=== PATIENT | female | born 1935 | race Caucasian/White ===

== ENCOUNTER 2020-05-13 23:24 | Observation (INO) | payer MEDICARE ==
[2020-05-13] MEDS ORDERED: NORCO 5/325 MG PO ONE (23:53)
--- NOTE | 2020-05-14 00:01 | ERPHSYRPT ---
- History of Present Illness Time Seen by Provider: 05/13/20 23:40 Source: patient Exam Limitations: no limitations Physician History: 85 yo [place] with palpitations and sob. she is given oral metoprolol and nitro x2 [employer] for palpitations /chest tightness. she reports that this afternoon was having low grade fever and chills as well. Palpitations are sudden onset , fast rate , regular with no significant aggravating /relieving factors . still have chest tightness but better than before. denies any cough. on presentation HR in 104 . Timing/Duration: today, gradual onset, worse Activities at Onset: rest Severity of Dyspnea-Max: moderate Severity of Dyspnea-Current: moderate Modifying Factors: Improves With: nothing Associated Symptoms: cough, chest pain/discomfort, fever, tightness Allergies/Adverse Reactions: albuterol Allergy (Verified 05/13/20 23:36) Home Medications: Acetaminophen 325 mg [Tylenol 325 mg] 2 tab PO Q4H PRN 05/14/20 [History] Aspirin EC 81 mg [Ecotrin 81 mg] 81 mg PO HS 05/14/20 [History] Clopidogrel Bisulfate 75 mg [PLAVIX 75 MG Tablet] 75 mg PO DAILY 05/14/20 [History] Enoxaparin Sodium 40 mg SQ DAILY 05/14/20 [History] Gabapentin 200 mg PO TID 05/14/20 [History] Glimepiride 1 mg PO BID 05/14/20 [History] Glucagon [Baqsimi] 1 spray IN UD PRN 05/14/20 [History] Hydrocodone Bit/Acetaminophen [Hydrocodon-Acetaminophen 5-325] 1 tab PO Q6H PRN 05/14/20 [History] Insulin Glargine,Hum.rec.anlog [Toujluis Almanza Solostar] 25 units SQ HS 05/14/20 [History] Insulin Lispro 7 units SQ TID 05/14/20 [History] Isosorbide Mononitrate 30 mg [Imdur 30 MG] 30 mg PO DAILY 05/14/20 [History] Levothyroxine Sodium 88 Mcg [Synthroid 88 Mcg] 88 mcg PO DAILY 05/14/20 [History] Lidocaine/Transparent Dressing [Lidocaine 4% Kit] 1 patch TOP DAILY 05/14/20 [History] Lisinopril 10 mg [Zestril 10 MG] 10 mg PO DAILY 05/14/20 [History] Metformin HCl 500 mg [Glucophage 500 MG] 500 mg PO BID 05/14/20 [History] Metoprolol Succinate 50 mg PO DAILY 05/14/20 [History] Nitroglycerin 0.4 mg Tablet [Nitrostat 0.4 MG Tablet] 1 tab SL Q5MIN PRN MR X 3 PRN 05/14/20 [History] PANTOPRAZOLE 40 mg Tablet [Protonix 40MG Tablet] 40 mg PO DAILY 05/14/20 [History] Polyethylene Glycol 3350 [Miralax] 1 packet PO DAILY PRN 05/14/20 [History] - Review of Systems Constitutional: Fever, Chills, Fatigue, Weakness Eyes: No Symptoms Ears, Nose, & Throat: No Symptoms Respiratory: Dyspnea, Wheezing Cardiac: Chest Pain, Palpitations Abdominal/Gastrointestinal: No Symptoms Genitourinary Symptoms: No Symptoms Musculoskeletal: Joint Pain Skin: No Symptoms Neurological: No Symptoms Psychological: No Symptoms Endocrine: No Symptoms Hematologic/Lymphatic: No Symptoms Immunological/Allergic: No Symptoms - Nursing Vital Signs Nursing Vital Signs: Initial Vital Signs Temperature 98.6 F 05/13/20 23:25 Pulse Rate 102 H 05/13/20 23:25 Respiratory Rate 20 05/13/20 23:25 Blood Pressure 120/65 05/13/20 23:25 O2 Sat by Pulse Oximetry 94 L 05/13/20 23:25 Pain Scale Pain Intensity 0 - Physical Exam General Appearance: no apparent distress, alert Eye Exam: PERRL/EOMI, eyes nml inspection Ears, Nose, Throat Exam: hearing grossly normal, normal ENT inspection, pharyngeal erythema Neck Exam: normal inspection, non-tender, supple, full range of motion Respiratory Exam: diminished breath sounds, wheezing, No respiratory distress Cardiovascular/Chest Exam: normal heart sounds, tachycardia Abdominal/Gastrointestinal Exam: soft, normal bowel sounds, No tenderness Extremity Exam: non-tender Neurologic Exam: alert, oriented x 3, cooperative Skin Exam: normal color, warm SpO2 Interpretation: normal O2 Delivery: Room Air - Course Nursing assessment & vital signs reviewed: Yes EKG Interpreted by Me: RATE (102), Sinus Tach, NORMAL AXIS, NORMAL INTERVALS, Non-specific ST Changes Ordered Tests: Medication Summary Discontinued Medications Generic Name Dose Route Start Last Admin Trade Name Freq PRN Reason Stop Dose Admin Acetaminophen 650 mg 05/14/20 09:51 05/16/20 06:55 Tylenol 325 Mg PO 06/13/20 09:50 650 mg Q4H PRN PRN Administration PAIN AND/OR FEVER Hydrocodone Bitart/Acetaminophen 1 tab 05/13/20 23:53 05/14/20 00:38 [place] 5/325 Mg PO 05/13/20 23:54 1 tab STAT ONE Administration Hydrocodone Bitart/Acetaminophen Confirm 05/14/20 00:37 [place] 5/325 Mg Administered 05/14/20 00:38 Dose 1 tab .ROUTE .STK-MED ONE Hydrocodone Bitart/Acetaminophen 1 tab 05/14/20 13:15 [place] 5/325 Mg PO 05/19/20 13:14 Q6H/PRN PRN MODERATE TO SEVERE PAIN Dextrose 25 ml 05/15/20 11:45 05/15/20 11:44 D50w 50 Ml Abboject IV 05/15/20 11:46 25 ml NOW ONE Administration Enoxaparin Sodium 40 mg 05/14/20 14:00 05/16/20 09:14 Enoxaparin Sodium SQ 06/13/20 13:59 40 mg DAILY BRANDEN Administration Famotidine 20 mg 05/14/20 10:00 05/16/20 09:14 Pepcid 20 Mg Vial IV 06/13/20 09:59 20 mg Q12HT BRANDEN Administration Gabapentin 200 mg 05/14/20 15:00 05/16/20 09:14 Neurontin 100 Mg PO 06/13/20 14:59 200 mg TID BRANDEN Administration Glucagon 1 mg 05/14/20 13:37 Glucagen 1 Mg IM 06/13/20 13:36 UD PRN HYPOGLYCEMIA Lactated Ringer's 1,000 mls @ 80 mls/hr 05/14/20 15:30 05/15/20 06:27 Lactated Ringers IV 06/13/20 15:29 80 mls/hr .[id number] BRANDEN Administration Piperacillin Sod/Tazobactam 100 mls @ 200 mls/hr 05/14/20 15:00 05/16/20 09:13 Sod 2.25 gm/ Dextrose IV 06/13/20 14:59 200 mls/hr Q6H BRANDEN Administration Insulin Glargine 10 unit 05/14/20 22:00 05/15/20 21:18 Lantus Insulin SQ 06/13/20 21:59 10 unit HS BRANDEN Administration Insulin Human Lispro 0 unit 05/14/20 09:51 05/15/20 21:19 Humalog SQ 06/13/20 09:50 3 unit UD PRN Administration HYPERGLYCEMIA Isosorbide Mononitrate 30 mg 05/14/20 14:00 05/16/20 09:15 Imdur 30 Mg PO 06/13/20 13:59 30 mg DAILY BRANDEN Administration Levothyroxine Sodium 88 mcg 05/14/20 14:00 05/16/20 09:15 Synthroid 88 Mcg PO 06/13/20 13:59 88 mcg DAILY BRANDEN Administration Lidocaine 1 patch 05/14/20 14:00 05/16/20 09:13 Lidoderm Patch 5% TOP 06/13/20 13:59 1 patch DAILY BRANDEN Administration Lisinopril 10 mg 05/14/20 14:00 05/16/20 09:14 Zestril 10 Mg PO 06/13/20 13:59 10 mg DAILY BRANDEN Administration Metoprolol Succinate 50 mg 05/14/20 14:00 05/16/20 09:14 Toprol Xl 50 Mg PO 06/13/20 13:59 50 mg DAILY BRANDEN Administration Morphine Sulfate 2 mg 05/14/20 09:51 Morphine Sulfate 2 Mg Inj IV 05/19/20 09:50 Q4H PRN PRN PAIN Nitroglycerin 0.4 mg 05/14/20 13:15 Nitrostat 0.4 Mg Tablet SL 06/13/20 13:14 Q5MIN PRN MR X 3 PRN CHEST PAIN Non-Formulary Medication 1 each 05/14/20 22:00 05/15/20 21:31 Remove Patch Reminder TOP 06/13/20 21:59 1 each HS BRANDEN Administration Ondansetron HCl 4 mg 05/14/20 06:33 05/14/20 07:45 Zofran 4 Mg/2 Ml Vial IV 05/14/20 06:34 4 mg STAT ONE Administration Ondansetron HCl Confirm 05/14/20 07:29 Zofran 4 Mg/2 Ml Vial Administered 05/14/20 07:30 Dose 4 mg .ROUTE .STK-MED ONE Ondansetron HCl 4 mg 05/14/20 09:51 Zofran 4 Mg/2 Ml Vial IV 06/13/20 09:50 Q6H PRN PRN NAUSEA/VOMITING Pantoprazole Sodium 40 mg 05/14/20 14:00 05/16/20 09:14 Protonix 40mg Tablet PO 06/13/20 13:59 40 mg DAILY BRANDEN Administration Polyethylene Glycol 17 gm 05/14/20 13:15 05/15/20 17:45 Miralax Powder 17gm Packet PO 06/13/20 13:14 17 gm DAILY PRN PRN Administration bowel care Sodium Chloride 10 ml 05/15/20 22:00 05/16/20 06:55 Sodium Chloride 0.9% 10 Ml Flush Syringe IV 06/14/20 21:59 10 ml Q8HT BRANDEN Administration Sodium Chloride 10 ml 05/15/20 16:30 05/15/20 17:45 Sodium Chloride 0.9% 10 Ml Flush Syringe IV 06/14/20 16:29 10 ml PRN PRN Administration Lab/Rad Data: Laboratory Result Diagrams 05/13/20 00:05 05/13/20 00:05 Laboratory Results 05/14/20 05/14/20 05/14/20 Range/Units 07:43 05:00 03:15 WBC (4.0-10.5) K/mm3 RBC (4.1-5.4) M/mm3 Hgb (12.0-16.0) gm/dl Hct (35-47) % MCV (78-100) fl MCH (26-32) pg MCHC (32-36) g/dl RDW (11.5-14.0) % Plt Count (150-450) K/mm3 MPV (7.5-11.0) fl Gran % (36.0-66.0) % Eos # (Auto) (0-0.5) Absolute Lymphs (auto) (1.0-4.6) Absolute Monos (auto) (0.0-1.3) Lymphocytes % (24.0-44.0) % Monocytes % (0.0-12.0) % Eosinophils % (0.00-5.0) % Basophils % (0.0-0.4) % Absolute Granulocytes (1.4-6.9) Basophils # (0-0.4) PT (9.95-12.35) SECONDS INR (0.8-3.0) APTT (25.3-37.0) SECONDS D-Dimer (215-500) ng/mL Sodium (137-145) mmol/L Potassium (3.5-5.1) mmol/L Chloride (98-107) mmol/L Carbon Dioxide (22-30) mmol/L Anion Gap (5-15) MEQ/L BUN (7-17) mg/dL Creatinine (0.52-1.04) mg/dL Estimated GFR ML/MIN Glucose (74-106) mg/dL Hemoglobin A1c 6.55 H (4.5-6.0) % Lactic Acid (0.4-2.0) Calcium (8.4-10.2) mg/dL Magnesium (1.6-2.3) mg/dL Total Bilirubin (0.2-1.3) mg/dL AST (14-36) U/L ALT (0-35) U/L Alkaline Phosphatase (38-126) U/L Troponin I < 0.012 (0.000-0.034) ng/mL NT-Pro-B Natriuret Pep (0-1800) pg/mL Serum Total Protein (6.3-8.2) g/dL Albumin (3.5-5.0) g/dL Urine Color (YELLOW) Urine Appearance (CLEAR) Urine pH (5-6) Ur Specific [place] (1.005-1.025) Urine Protein (Negative) Urine Ketones (NEGATIVE) Urine Blood (0-5) Wojciech/ul Urine Nitrite (NEGATIVE) Urine Bilirubin (NEGATIVE) Urine Urobilinogen (0-1) mg/dL Ur Leukocyte Esterase (NEGATIVE) Urine WBC (Auto) (0-5) /HPF Urine RBC (Auto) (0-2) /HPF U Epithel Cells (Auto) (FEW) /HPF Urine Bacteria (Auto) (NEGATIVE) /HPF Urine Culture Reflexed (NO) Urine Glucose (NEGATIVE) mg/dL Influenza Type A Ag (NEGATIVE) Influenza Type B Ag (NEGATIVE) RSV (PCR) (Negative) SARS-CoV-2 (PCR) NEGATIVE (NEGATIVE) Slides for Path Review 05/14/20 05/14/20 05/14/20 Range/Units 01:30 01:08 00:05 WBC (4.0-10.5) K/mm3 RBC (4.1-5.4) M/mm3 Hgb (12.0-16.0) gm/dl Hct (35-47) % MCV (78-100) fl MCH (26-32) pg MCHC (32-36) g/dl RDW (11.5-14.0) % Plt Count (150-450) K/mm3 MPV (7.5-11.0) fl Gran % (36.0-66.0) % Eos # (Auto) (0-0.5) Absolute Lymphs (auto) (1.0-4.6) Absolute Monos (auto) (0.0-1.3) Lymphocytes % (24.0-44.0) % Monocytes % (0.0-12.0) % Eosinophils % (0.00-5.0) % Basophils % (0.0-0.4) % Absolute Granulocytes (1.4-6.9) Basophils # (0-0.4) PT (9.95-12.35) SECONDS INR (0.8-3.0) APTT (25.3-37.0) SECONDS D-Dimer 1515 H* (215-500) ng/mL Sodium (137-145) mmol/L Potassium (3.5-5.1) mmol/L Chloride (98-107) mmol/L Carbon Dioxide (22-30) mmol/L Anion Gap (5-15) MEQ/L BUN (7-17) mg/dL Creatinine (0.52-1.04) mg/dL Estimated GFR ML/MIN Glucose (74-106) mg/dL Hemoglobin A1c (4.5-6.0) % Lactic Acid 2.0 (0.4-2.0) Calcium (8.4-10.2) mg/dL Magnesium (1.6-2.3) mg/dL Total Bilirubin (0.2-1.3) mg/dL AST (14-36) U/L ALT (0-35) U/L Alkaline Phosphatase (38-126) U/L Troponin I (0.000-0.034) ng/mL NT-Pro-B Natriuret Pep (0-1800) pg/mL Serum Total Protein (6.3-8.2) g/dL Albumin (3.5-5.0) g/dL Urine Color YELLOW (YELLOW) Urine Appearance CLEAR (CLEAR) Urine pH 7.0 (5-6) Ur Specific [place] 1.006 (1.005-1.025) Urine Protein NEGATIVE (Negative) Urine Ketones NEGATIVE (NEGATIVE) Urine Blood NEGATIVE (0-5) Wojciech/ul Urine Nitrite NEGATIVE (NEGATIVE) Urine Bilirubin NEGATIVE (NEGATIVE) Urine Urobilinogen NORMAL (0-1) mg/dL Ur Leukocyte Esterase NEGATIVE (NEGATIVE) Urine WBC (Auto) NONE SEEN (0-5) /HPF Urine RBC (Auto) NONE SEEN (0-2) /HPF U Epithel Cells (Auto) NONE (FEW) /HPF Urine Bacteria (Auto) NONE SEEN (NEGATIVE) /HPF Urine Culture Reflexed NO (NO) Urine Glucose NEGATIVE (NEGATIVE) mg/dL Influenza Type A Ag (NEGATIVE) Influenza Type B Ag (NEGATIVE) RSV (PCR) (Negative) SARS-CoV-2 (PCR) (NEGATIVE) Slides for Path Review 05/13/20 05/13/20 05/13/20 Range/Units 23:52 00:20 00:05 WBC (4.0-10.5) K/mm3 RBC (4.1-5.4) M/mm3 Hgb (12.0-16.0) gm/dl Hct (35-47) % MCV (78-100) fl MCH (26-32) pg MCHC (32-36) g/dl RDW (11.5-14.0) % Plt Count (150-450) K/mm3 MPV (7.5-11.0) fl Gran % (36.0-66.0) % Eos # (Auto) (0-0.5) Absolute Lymphs (auto) (1.0-4.6) Absolute Monos (auto) (0.0-1.3) Lymphocytes % (24.0-44.0) % Monocytes % (0.0-12.0) % Eosinophils % (0.00-5.0) % Basophils % (0.0-0.4) % Absolute Granulocytes (1.4-6.9) Basophils # (0-0.4) PT 12.8 H (9.95-12.35) SECONDS INR 1.13 (0.8-3.0) APTT 28.2 (25.3-37.0) SECONDS D-Dimer (215-500) ng/mL Sodium (137-145) mmol/L Potassium (3.5-5.1) mmol/L Chloride (98-107) mmol/L Carbon Dioxide (22-30) mmol/L Anion Gap (5-15) MEQ/L BUN (7-17) mg/dL Creatinine (0.52-1.04) mg/dL Estimated GFR ML/MIN Glucose (74-106) mg/dL Hemoglobin A1c (4.5-6.0) % Lactic Acid (0.4-2.0) Calcium (8.4-10.2) mg/dL Magnesium (1.6-2.3) mg/dL Total Bilirubin (0.2-1.3) mg/dL AST (14-36) U/L ALT (0-35) U/L Alkaline Phosphatase (38-126) U/L Troponin I < 0.012 (0.000-0.034) ng/mL NT-Pro-B Natriuret Pep (0-1800) pg/mL Serum Total Protein (6.3-8.2) g/dL Albumin (3.5-5.0) g/dL Urine Color (YELLOW) Urine Appearance (CLEAR) Urine pH (5-6) Ur Specific [place] (1.005-1.025) Urine Protein (Negative) Urine Ketones (NEGATIVE) Urine Blood (0-5) Wojciech/ul Urine Nitrite (NEGATIVE) Urine Bilirubin (NEGATIVE) Urine Urobilinogen (0-1) mg/dL Ur Leukocyte Esterase (NEGATIVE) Urine WBC (Auto) (0-5) /HPF Urine RBC (Auto) (0-2) /HPF U Epithel Cells (Auto) (FEW) /HPF Urine Bacteria (Auto) (NEGATIVE) /HPF Urine Culture Reflexed (NO) Urine Glucose (NEGATIVE) mg/dL Influenza Type A Ag NEGATIVE (NEGATIVE) Influenza Type B Ag NEGATIVE (NEGATIVE) RSV (PCR) NEGATIVE (Negative) SARS-CoV-2 (PCR) (NEGATIVE) Slides for Path Review 05/13/20 05/13/20 Range/Units 00:05 00:05 WBC 6.5 (4.0-10.5) K/mm3 RBC 3.53 L (4.1-5.4) M/mm3 Hgb 10.3 L (12.0-16.0) gm/dl Hct 33.2 L (35-47) % MCV 94.1 (78-100) fl MCH 29.2 (26-32) pg MCHC 31.0 L (32-36) g/dl RDW 15.7 H (11.5-14.0) % Plt Count 172 (150-450) K/mm3 MPV 8.9 (7.5-11.0) fl Gran % 83.8 H (36.0-66.0) % Eos # (Auto) 0.10 (0-0.5) Absolute Lymphs (auto) 0.46 L (1.0-4.6) Absolute Monos (auto) 0.47 (0.0-1.3) Lymphocytes % 7.1 L (24.0-44.0) % Monocytes % 7.3 (0.0-12.0) % Eosinophils % 1.5 (0.00-5.0) % Basophils % 0.3 (0.0-0.4) % Absolute Granulocytes 5.43 (1.4-6.9) Basophils # 0.02 (0-0.4) PT (9.95-12.35) SECONDS INR (0.8-3.0) APTT (25.3-37.0) SECONDS D-Dimer (215-500) ng/mL Sodium 135 L (137-145) mmol/L Potassium 5.0 (3.5-5.1) mmol/L Chloride 100 (98-107) mmol/L Carbon Dioxide 27 (22-30) mmol/L Anion Gap 13.1 (5-15) MEQ/L BUN 18 H (7-17) mg/dL Creatinine 0.82 (0.52-1.04) mg/dL Estimated GFR > 60.0 ML/MIN Glucose 157 H (74-106) mg/dL Hemoglobin A1c (4.5-6.0) % Lactic Acid (0.4-2.0) Calcium 8.9 (8.4-10.2) mg/dL Magnesium 1.8 (1.6-2.3) mg/dL Total Bilirubin 1.20 (0.2-1.3) mg/dL AST 748 H (14-36) U/L ALT 570 H (0-35) U/L Alkaline Phosphatase 206 H (38-126) U/L Troponin I (0.000-0.034) ng/mL NT-Pro-B Natriuret Pep 213 (0-1800) pg/mL Serum Total Protein 6.8 (6.3-8.2) g/dL Albumin 3.7 (3.5-5.0) g/dL Urine Color (YELLOW) Urine Appearance (CLEAR) Urine pH (5-6) Ur Specific [place] (1.005-1.025) Urine Protein (Negative) Urine Ketones (NEGATIVE) Urine Blood (0-5) Wojciech/ul Urine Nitrite (NEGATIVE) Urine Bilirubin (NEGATIVE) Urine Urobilinogen (0-1) mg/dL Ur Leukocyte Esterase (NEGATIVE) Urine WBC (Auto) (0-5) /HPF Urine RBC (Auto) (0-2) /HPF U Epithel Cells (Auto) (FEW) /HPF Urine Bacteria (Auto) (NEGATIVE) /HPF Urine Culture Reflexed (NO) Urine Glucose (NEGATIVE) mg/dL Influenza Type A Ag (NEGATIVE) Influenza Type B Ag (NEGATIVE) RSV (PCR) (Negative) SARS-CoV-2 (PCR) (NEGATIVE) Slides for Path Review YES - Progress Progress: improved, re-examined Air Movement: good Progress Note: Discussed with Dr. Burch and patient is being admitted for observation. Blood Culture(s) Obtained: Yes Antibiotics given: No Discussed with : Other () Will see patient in: hospital (observation) Counseled pt/family regarding: lab results, diagnosis, rad results - Departure Departure Disposition: Observation Clinical Impression: Cholecystitis, Suspected COVID-19 virus infection, Elevated transaminase level, Tachycardia Condition: Stable Critical Care Time: No
[2020-05-14] MEDS ORDERED: NORCO 5/325 MG ONE (00:37)
[2020-05-14 01:00] LABS: Absolute Neutrophil Ct (ANC) 5.43 (1.4-6.9); BASOPHIL % 0.3 % (0.0-0.4); Basophil (Absolute #) 0.02 (0-0.4); Eosinophil % 1.5 % (0.00-5.0); Hematocrit 33.2 % (35-47); Hemoglobin 10.3 gm/dl (12.0-16.0); Lymphocyte (Absolute #) 0.46 (1.0-4.6); Lymphocytes % 7.1 % (24.0-44.0); Mean Cell Volume 94.1 fl (78-100); Mean Corpuscular Hemoglobin 29.2 pg (26-32); Mean Platelet Volume 8.9 fl (7.5-11.0); Monocyte (Absolute #) 0.47 (0.0-1.3); Monocytes % 7.3 % (0.0-12.0); Neutrophil % 83.8 % (36.0-66.0); Platelet Count 172 K/mm3 (150-450); Red Blood Count 3.53 M/mm3 (4.1-5.4); Red Cell Distribution Width 15.7 % (11.5-14.0); White Blood Count 6.5 K/mm3 (4.0-10.5)
[2020-05-14 01:15] LABS: INR 1.13 (0.8-3.0); PROTIME 12.8 SECONDS (9.95-12.35)
[2020-05-14 01:18] LABS: PTT 28.2 SECONDS (25.3-37.0)
[2020-05-14 01:28] LABS: ALBUMIN 3.7 g/dL (3.5-5.0); ALKALINE PHOSPHATASE 206 U/L (38-126); ANION GAP 13.1 MEQ/L (5-15); BLOOD UREA NITROGEN 18 mg/dL (7-17); CHLORIDE 100 mmol/L (98-107); Calcium 8.9 mg/dL (8.4-10.2); Carbon Dioxide 27 mmol/L (22-30); Creatinine 1 0.82 mg/dL (0.52-1.04); Glucose 157 mg/dL (74-106); MAGNESIUM 1.8 mg/dL (1.6-2.3); NT PRO BNP 213 pg/mL (0-1800); SGOT/AST 748 U/L (14-36); SGPT/ALT 570 U/L (0-35); SODIUM 135 mmol/L (137-145); Total Protein 6.8 g/dL (6.3-8.2)
[2020-05-14 01:43] LABS: Appearance CLEAR (CLEAR); Specific Gravity 1.006 (1.005-1.025)
[2020-05-14 01:44] LABS: Bacteria NONE SEEN /HPF (NEGATIVE); Bilirubin NEGATIVE (NEGATIVE); Blood NEGATIVE Ery/ul (0-5); Glucose NEGATIVE (NEGATIVE); Ketones NEGATIVE (NEGATIVE); Leukocyte Esterase NEGATIVE (NEGATIVE); Nitrite NEGATIVE (NEGATIVE); Protein,Urine Dip NEGATIVE (Negative); RBC NONE SEEN /HPF (0-2); Urobilinogen NORMAL mg/dL (0-1); WBC NONE SEEN /HPF (0-5)
[2020-05-14 01:45] LABS: INFLUENZA A NEGATIVE (NEGATIVE); INFLUENZA B NEGATIVE (NEGATIVE); RESPIRATORY SYNCTIAL VIRUS NEGATIVE (Negative)
[2020-05-14 04:05] LABS: Slide Review 1 YES
[2020-05-14] MEDS ORDERED: Zofran 4 MG/2 ML VIAL IV ONE (06:33)
[2020-05-14] MEDS ORDERED: Zofran 4 MG/2 ML VIAL ONE (07:29)
--- NOTE | 2020-05-14 07:46 | XRAY ---
Indication: Short of breath and elevated d-dimer. Multiple contiguous axial images obtained through the chest using 100 cc Isovue 370 contrast and PE protocol. Comparison: None. There is good opacification of the pulmonary arteries to include the lobar and segmental branches. No filling defect/pulmonary embolus. The heart is not enlarged demonstrating CABG surgery. Aorta is normal in course and caliber with mild calcifications. No pathologic mediastinal/hilar lymphadenopathy. Moderate-sized hiatal hernia with partial intrathoracic stomach. Lungs demonstrates mild bilateral scattered fibrosis/scarring greatest near the lung bases. No suspicious pulmonary mass, infiltrate, or effusion. Bony thorax intact with mild degenerative changes throughout the spine and sternotomy wires. CT abdomen/pelvis reported separately. Bony thorax intact with mild degenerative changes throughout the spine. Impression: 1. Negative pulmonary embolus. No acute cardiopulmonary abnormalities. 2. Incidental scattered fibrosis/scarring, CABG surgery, and moderate-sized hiatal hernia.. Comment: Preliminary interpretation was made by C. No critical discrepancy.
--- NOTE | 2020-05-14 07:50 | XRAY ---
Indication: Elevated AST, ALT, and alkaline phosphatase. Short of breath. Multiple contiguous axial images obtained through the abdomen and pelvis using 100 cc Isovue 370 contrast only. Comparison: None. CT chest reported separately. Noncontrasted stomach and bowel loops appear nonobstructed. Transverse duodenum demonstrates small 1.8 cm diverticulum. Normal appendix. Minimal sigmoid diverticulosis. Gallbladder mildly distended without gallstones or abnormal biliary distention. Each kidney demonstrates a cortical cyst, largest left upper pole measuring 2.3 cm. Remaining liver, gallbladder, pancreas, spleen, adrenal glands, kidneys, ureters, bladder, and uterus appear unremarkable. Moderate scattered aortoiliac calcifications. No AAA or pathologic retroperitoneal lymphadenopathy. Osseous structures demonstrates osteopenia, moderate/advanced multilevel lumbar degenerative spondylosis, and old proximal right femur fracture with 3 orthopedic screws. Impression: 1. Colonic diverticulosis, duodenal diverticulum, bilateral renal cysts, distended gallbladder without gallstones, and chronic bony findings. 2. Remaining CT abdomen/pelvis with contrast exam is negative. Comment: Preliminary interpretation was made by [facility]. No critical discrepancy.
--- NOTE | 2020-05-14 07:53 | XRAY ---
Indication: Short of breath, CHF, and pneumonia. Comparison: None Portable chest underinflated with minimal bibasilar subsegmental atelectasis/scarring. Remaining upper lungs clear. Heart is not enlarged with CABG surgery. Bony thorax intact with mild osteopenia and degenerative changes. Impression: Nonacute underinflated chest with chronic features.
[2020-05-14] MEDS ORDERED: MORPHINE SULFATE 2 MG INJ IV PRN (09:51)
[2020-05-14] MEDS ORDERED: Zofran 4 MG/2 ML VIAL IV PRN (09:51)
[2020-05-14] MEDS: Pepcid 20 MG VIAL IV SCH ×2 (10:59→21:37)
[2020-05-14] MEDS: TYLENOL 325 MG PO PRN ×3 (11:47→21:51)
[2020-05-14] MEDS ORDERED: Nitrostat 0.4 MG Tablet SL PRN (13:15)
[2020-05-14] MEDS ORDERED: Miralax Powder 17GM PACKET PO PRN (13:15)
[2020-05-14] MEDS ORDERED: NORCO 5/325 MG PO PRN (13:15)
[2020-05-14] MEDS ORDERED: GLUCAGON IN PRN (13:15)
[2020-05-14] MEDS ORDERED: TYLENOL 325 MG PO PRN (13:15)
[2020-05-14] MEDS ORDERED: GlucaGen 1 MG IM PRN (13:37)
[2020-05-14] MEDS: ENOXAPARIN SODIUM SQ SCH (14:00)
[2020-05-14] MEDS: Lidoderm Patch 5% TOP SCH (14:00)
[2020-05-14] MEDS: Neurontin 100 MG PO SCH ×2 (14:01→21:37)
[2020-05-14] MEDS: Zestril 10 MG PO SCH (14:01)
[2020-05-14] MEDS: Imdur 30 MG PO SCH (14:01)
[2020-05-14] MEDS: Protonix 40MG Tablet PO SCH (14:01)
[2020-05-14] MEDS: Toprol Xl 50 MG PO SCH (14:01)
[2020-05-14] MEDS: SYNTHROID 88 MCG PO SCH (14:10)
[2020-05-14] MEDS: Lactated Ringers 1,000 ML IV SCH (15:28)
[2020-05-14] MEDS: Zosyn 2.25 GM 2.25 GM in Dextrose 5%/Water IV Soln. 100ML PLUS BAG 100 ML IV SCH ×2 (15:29→21:28)
[2020-05-14] MEDS ORDERED: Zosyn 3.375 GM Vial 3.375 GM in Sodium Chloride 100ML MINI-BAG PLUS 100 ML IV SCH (15:30)
--- NOTE | 2020-05-14 15:52 | PCM.HP ---
History of Present Illness - Chief Complaint Chief Complaint: cholecystitis History of Present Illness: is a 85 year old female pt from [facility] (Rehab) who came to ER c/o SOB, tachycardia, and feeling "weird" and nauseated all day. She had chills and temp to 99.9. In the ER she was found to have distended GB on CT and d-dimer of 1515 (CTA chest neg for PE). Her troponins have been neg x 2. AST 748, ALT 570, and AP 206. She was also found to have positive blood culture already for GNR so was started on IV zosyn. Surgery was consulted for possible cholecystitis with obstruction. However pt does not c/o any abd pain (but is tender on exam). She sees Dr. Jim Rae in [place] as her PCP; Dr. Jamison for cardiology, and Dr. Moser for pulmonology. Dr. Mcdonald in [place] is her orthopedist. Apparently she had a L leg fx fairly recently and had surgery with 3 pins placed - she was home x 4d afterward then stood up and fractured her pelvis (non surgical). She has been at [facility] for therapy for the past 13 days. - Review of Systems Constitutional: Chills Respiratory: Short Of Breath Cardiac: Edema (LE, since her leg fx), Palpitations Abdominal/Gastrointestinal: Nausea Psychological: Anxiety All Other Systems: Reviewed and Negative Medications & Allergies Home Medications: Home Medication List Acetaminophen 325 mg [Tylenol 325 mg] 2 tab PO Q4H PRN 05/14/20 [History Confirmed 05/14/20] Aspirin EC 81 mg [Ecotrin 81 mg] 81 mg PO HS 05/14/20 [History Confirmed 05/14/20] Clopidogrel Bisulfate 75 mg [PLAVIX 75 MG Tablet] 75 mg PO DAILY 05/14/20 [History Confirmed 05/14/20] Enoxaparin Sodium 40 mg SQ DAILY 05/14/20 [History Confirmed 05/14/20] Gabapentin 200 mg PO TID 05/14/20 [History Confirmed 05/14/20] Glimepiride 1 mg PO BID 05/14/20 [History Confirmed 05/14/20] Glucagon [Baqsimi] 1 spray IN UD PRN 05/14/20 [History Confirmed 05/14/20] Hydrocodone Bit/Acetaminophen [Hydrocodon-Acetaminophen 5-325] 1 tab PO Q6H PRN 05/14/20 [History Confirmed 05/14/20] Insulin Glargine,Hum.rec.anlog [Toujluis Archie Solostar] 25 units SQ HS 05/14/20 [History Confirmed 05/14/20] Insulin Lispro 7 units SQ TID 05/14/20 [History Confirmed 05/14/20] Isosorbide Mononitrate 30 mg [Imdur 30 MG] 30 mg PO DAILY 05/14/20 [History Confirmed 05/14/20] Levothyroxine Sodium 88 Mcg [Synthroid 88 Mcg] 88 mcg PO DAILY 05/14/20 [History Confirmed 05/14/20] Lidocaine/Transparent Dressing [Lidocaine 4% Kit] 1 patch TOP DAILY 05/14/20 [History Confirmed 05/14/20] Lisinopril 10 mg [Zestril 10 MG] 10 mg PO DAILY 05/14/20 [History Confirmed 05/14/20] Metformin HCl 500 mg [Glucophage 500 MG] 500 mg PO BID 05/14/20 [History Confirmed 05/14/20] Metoprolol Succinate 50 mg PO DAILY 05/14/20 [History Confirmed 05/14/20] Nitroglycerin 0.4 mg Tablet [Nitrostat 0.4 MG Tablet] 1 tab SL Q5MIN PRN MR X 3 PRN 05/14/20 [History Confirmed 05/14/20] PANTOPRAZOLE 40 mg Tablet [Protonix 40MG Tablet] 40 mg PO DAILY 05/14/20 [History Confirmed 05/14/20] Polyethylene Glycol 3350 [Miralax] 1 packet PO DAILY PRN 05/14/20 [History Confirmed 05/14/20] Allergies/Adverse Reactions: Allergies Allergy/AdvReac Type Severity Reaction Status Date / Time albuterol Allergy Verified 05/13/20 23:36 - Past Medical History Past Medical History: Yes Cardiac History: Angina, Coronary Artery Disease, High Cholesterol, Hypertension Endocrine Medical History: Diabetes Type II, Hypothyroidism GI Medical History: GERD - Female History Are you now?: No - Past Surgical History Past Surgical History: Yes Cardiac History: CABG Musculskeletal Surgical Hx: Orthopedic Surgery - Social History Smoking Status: Former smoker Exposure to second hand smoke: No Alcohol: None Drug Use: none - Physical Exam Vital Signs: Vital Signs - 24 hr Temp Pulse Pulse Resp BP Pulse Ox 05/14/20 09:24 96 H 20 143/65 97 05/14/20 08:18 99 H 24 143/65 94 L 05/14/20 07:45 99 H 18 94 L 05/14/20 05:00 103 H 22 159/77 95 05/14/20 04:00 106 H 24 164/80 94 L 05/14/20 03:00 90 22 126/63 95 05/14/20 02:23 91 H 20 119/68 96 05/14/20 01:00 100 H 22 136/61 95 05/14/20 00:41 101 H 20 136/61 98 05/13/20 23:25 98.6 F 102 H 102 H 20 120/65 94 L General Appearance: no apparent distress, alert Neurologic Exam: oriented x 3, cooperative Eye Exam: eyes nml inspection Ears, Nose, Throat Exam: moist mucous membranes Neck Exam: normal inspection, non-tender, supple, No lymphadenopathy Respiratory Exam: normal breath sounds, lungs clear, No crackles/rales, No rhonchi, No wheezing Cardiovascular Exam: regular rate/rhythm, normal heart sounds, No murmur Gastrointestinal/Abdomen Exam: soft, normal bowel sounds, tenderness (RUQ, epigastrum), No distention, No mass, No guarding, No rebound Back Exam: normal inspection, No rash Extremity Exam: normal inspection, No swelling, No tenderness Skin Exam: normal color, warm, dry, No rash Results - Labs Lab/Micro Results: Accuchecks Date 05/14/20 Time 11:55 Accucheck Value: 94 Lab Results-Last 24 Hours 05/13/20 05/13/20 05/13/20 Range/Units 00:05 00:05 00:05 WBC 6.5 (4.0-10.5) K/mm3 RBC 3.53 L (4.1-5.4) M/mm3 Hgb 10.3 L (12.0-16.0) gm/dl Hct 33.2 L (35-47) % MCV 94.1 (78-100) fl MCH 29.2 (26-32) pg MCHC 31.0 L (32-36) g/dl RDW 15.7 H (11.5-14.0) % Plt Count 172 (150-450) K/mm3 MPV 8.9 (7.5-11.0) fl Gran % 83.8 H (36.0-66.0) % Eos # (Auto) 0.10 (0-0.5) Absolute Lymphs (auto) 0.46 L (1.0-4.6) Absolute Monos (auto) 0.47 (0.0-1.3) Lymphocytes % 7.1 L (24.0-44.0) % Monocytes % 7.3 (0.0-12.0) % Eosinophils % 1.5 (0.00-5.0) % Basophils % 0.3 (0.0-0.4) % Absolute Granulocytes 5.43 (1.4-6.9) Basophils # 0.02 (0-0.4) PT 12.8 H (9.95-12.35) SECONDS INR 1.13 (0.8-3.0) APTT 28.2 (25.3-37.0) SECONDS D-Dimer (215-500) ng/mL Sodium 135 L (137-145) mmol/L Potassium 5.0 (3.5-5.1) mmol/L Chloride 100 (98-107) mmol/L Carbon Dioxide 27 (22-30) mmol/L Anion Gap 13.1 (5-15) MEQ/L BUN 18 H (7-17) mg/dL Creatinine 0.82 (0.52-1.04) mg/dL Estimated GFR > 60.0 ML/MIN Glucose 157 H (74-106) mg/dL Hemoglobin A1c (4.5-6.0) % Lactic Acid (0.4-2.0) Calcium 8.9 (8.4-10.2) mg/dL Magnesium 1.8 (1.6-2.3) mg/dL Total Bilirubin 1.20 (0.2-1.3) mg/dL AST 748 H (14-36) U/L ALT 570 H (0-35) U/L Alkaline Phosphatase 206 H (38-126) U/L Troponin I (0.000-0.034) ng/mL NT-Pro-B Natriuret Pep 213 (0-1800) pg/mL Serum Total Protein 6.8 (6.3-8.2) g/dL Albumin 3.7 (3.5-5.0) g/dL Urine Color (YELLOW) Urine Appearance (CLEAR) Urine pH (5-6) Ur Specific [place] (1.005-1.025) Urine Protein (Negative) Urine Ketones (NEGATIVE) Urine Blood (0-5) Wojciech/ul Urine Nitrite (NEGATIVE) Urine Bilirubin (NEGATIVE) Urine Urobilinogen (0-1) mg/dL Ur Leukocyte Esterase (NEGATIVE) Urine WBC (Auto) (0-5) /HPF Urine RBC (Auto) (0-2) /HPF U Epithel Cells (Auto) (FEW) /HPF Urine Bacteria (Auto) (NEGATIVE) /HPF Urine Culture Reflexed (NO) Urine Glucose (NEGATIVE) mg/dL Influenza Type A Ag (NEGATIVE) Influenza Type B Ag (NEGATIVE) RSV (PCR) (Negative) SARS-CoV-2 (PCR) (NEGATIVE) Slides for Path Review YES 05/13/20 05/13/20 05/14/20 Range/Units 00:20 23:52 00:05 WBC (4.0-10.5) K/mm3 RBC (4.1-5.4) M/mm3 Hgb (12.0-16.0) gm/dl Hct (35-47) % MCV (78-100) fl MCH (26-32) pg MCHC (32-36) g/dl RDW (11.5-14.0) % Plt Count (150-450) K/mm3 MPV (7.5-11.0) fl Gran % (36.0-66.0) % Eos # (Auto) (0-0.5) Absolute Lymphs (auto) (1.0-4.6) Absolute Monos (auto) (0.0-1.3) Lymphocytes % (24.0-44.0) % Monocytes % (0.0-12.0) % Eosinophils % (0.00-5.0) % Basophils % (0.0-0.4) % Absolute Granulocytes (1.4-6.9) Basophils # (0-0.4) PT (9.95-12.35) SECONDS INR (0.8-3.0) APTT (25.3-37.0) SECONDS D-Dimer 1515 H* (215-500) ng/mL Sodium (137-145) mmol/L Potassium (3.5-5.1) mmol/L Chloride (98-107) mmol/L Carbon Dioxide (22-30) mmol/L Anion Gap (5-15) MEQ/L BUN (7-17) mg/dL Creatinine (0.52-1.04) mg/dL Estimated GFR ML/MIN Glucose (74-106) mg/dL Hemoglobin A1c (4.5-6.0) % Lactic Acid (0.4-2.0) Calcium (8.4-10.2) mg/dL Magnesium (1.6-2.3) mg/dL Total Bilirubin (0.2-1.3) mg/dL AST (14-36) U/L ALT (0-35) U/L Alkaline Phosphatase (38-126) U/L Troponin I < 0.012 (0.000-0.034) ng/mL NT-Pro-B Natriuret Pep (0-1800) pg/mL Serum Total Protein (6.3-8.2) g/dL Albumin (3.5-5.0) g/dL Urine Color (YELLOW) Urine Appearance (CLEAR) Urine pH (5-6) Ur Specific [place] (1.005-1.025) Urine Protein (Negative) Urine Ketones (NEGATIVE) Urine Blood (0-5) Wojciech/ul Urine Nitrite (NEGATIVE) Urine Bilirubin (NEGATIVE) Urine Urobilinogen (0-1) mg/dL Ur Leukocyte Esterase (NEGATIVE) Urine WBC (Auto) (0-5) /HPF Urine RBC (Auto) (0-2) /HPF U Epithel Cells (Auto) (FEW) /HPF Urine Bacteria (Auto) (NEGATIVE) /HPF Urine Culture Reflexed (NO) Urine Glucose (NEGATIVE) mg/dL Influenza Type A Ag NEGATIVE (NEGATIVE) Influenza Type B Ag NEGATIVE (NEGATIVE) RSV (PCR) NEGATIVE (Negative) SARS-CoV-2 (PCR) (NEGATIVE) Slides for Path Review 05/14/20 05/14/20 05/14/20 Range/Units 01:08 01:30 03:15 WBC (4.0-10.5) K/mm3 RBC (4.1-5.4) M/mm3 Hgb (12.0-16.0) gm/dl Hct (35-47) % MCV (78-100) fl MCH (26-32) pg MCHC (32-36) g/dl RDW (11.5-14.0) % Plt Count (150-450) K/mm3 MPV (7.5-11.0) fl Gran % (36.0-66.0) % Eos # (Auto) (0-0.5) Absolute Lymphs (auto) (1.0-4.6) Absolute Monos (auto) (0.0-1.3) Lymphocytes % (24.0-44.0) % Monocytes % (0.0-12.0) % Eosinophils % (0.00-5.0) % Basophils % (0.0-0.4) % Absolute Granulocytes (1.4-6.9) Basophils # (0-0.4) PT (9.95-12.35) SECONDS INR (0.8-3.0) APTT (25.3-37.0) SECONDS D-Dimer (215-500) ng/mL Sodium (137-145) mmol/L Potassium (3.5-5.1) mmol/L Chloride (98-107) mmol/L Carbon Dioxide (22-30) mmol/L Anion Gap (5-15) MEQ/L BUN (7-17) mg/dL Creatinine (0.52-1.04) mg/dL Estimated GFR ML/MIN Glucose (74-106) mg/dL Hemoglobin A1c (4.5-6.0) % Lactic Acid 2.0 (0.4-2.0) Calcium (8.4-10.2) mg/dL Magnesium (1.6-2.3) mg/dL Total Bilirubin (0.2-1.3) mg/dL AST (14-36) U/L ALT (0-35) U/L Alkaline Phosphatase (38-126) U/L Troponin I < 0.012 (0.000-0.034) ng/mL NT-Pro-B Natriuret Pep (0-1800) pg/mL Serum Total Protein (6.3-8.2) g/dL Albumin (3.5-5.0) g/dL Urine Color YELLOW (YELLOW) Urine Appearance CLEAR (CLEAR) Urine pH 7.0 (5-6) Ur Specific [place] 1.006 (1.005-1.025) Urine Protein NEGATIVE (Negative) Urine Ketones NEGATIVE (NEGATIVE) Urine Blood NEGATIVE (0-5) Wojciech/ul Urine Nitrite NEGATIVE (NEGATIVE) Urine Bilirubin NEGATIVE (NEGATIVE) Urine Urobilinogen NORMAL (0-1) mg/dL Ur Leukocyte Esterase NEGATIVE (NEGATIVE) Urine WBC (Auto) NONE SEEN (0-5) /HPF Urine RBC (Auto) NONE SEEN (0-2) /HPF U Epithel Cells (Auto) NONE (FEW) /HPF Urine Bacteria (Auto) NONE SEEN (NEGATIVE) /HPF Urine Culture Reflexed NO (NO) Urine Glucose NEGATIVE (NEGATIVE) mg/dL Influenza Type A Ag (NEGATIVE) Influenza Type B Ag (NEGATIVE) RSV (PCR) (Negative) SARS-CoV-2 (PCR) (NEGATIVE) Slides for Path Review 05/14/20 05/14/20 Range/Units 05:00 07:43 WBC (4.0-10.5) K/mm3 RBC (4.1-5.4) M/mm3 Hgb (12.0-16.0) gm/dl Hct (35-47) % MCV (78-100) fl MCH (26-32) pg MCHC (32-36) g/dl RDW (11.5-14.0) % Plt Count (150-450) K/mm3 MPV (7.5-11.0) fl Gran % (36.0-66.0) % Eos # (Auto) (0-0.5) Absolute Lymphs (auto) (1.0-4.6) Absolute Monos (auto) (0.0-1.3) Lymphocytes % (24.0-44.0) % Monocytes % (0.0-12.0) % Eosinophils % (0.00-5.0) % Basophils % (0.0-0.4) % Absolute Granulocytes (1.4-6.9) Basophils # (0-0.4) PT (9.95-12.35) SECONDS INR (0.8-3.0) APTT (25.3-37.0) SECONDS D-Dimer (215-500) ng/mL Sodium (137-145) mmol/L Potassium (3.5-5.1) mmol/L Chloride (98-107) mmol/L Carbon Dioxide (22-30) mmol/L Anion Gap (5-15) MEQ/L BUN (7-17) mg/dL Creatinine (0.52-1.04) mg/dL Estimated GFR ML/MIN Glucose (74-106) mg/dL Hemoglobin A1c 6.55 H (4.5-6.0) % Lactic Acid (0.4-2.0) Calcium (8.4-10.2) mg/dL Magnesium (1.6-2.3) mg/dL Total Bilirubin (0.2-1.3) mg/dL AST (14-36) U/L ALT (0-35) U/L Alkaline Phosphatase (38-126) U/L Troponin I (0.000-0.034) ng/mL NT-Pro-B Natriuret Pep (0-1800) pg/mL Serum Total Protein (6.3-8.2) g/dL Albumin (3.5-5.0) g/dL Urine Color (YELLOW) Urine Appearance (CLEAR) Urine pH (5-6) Ur Specific [place] (1.005-1.025) Urine Protein (Negative) Urine Ketones (NEGATIVE) Urine Blood (0-5) Wojciech/ul Urine Nitrite (NEGATIVE) Urine Bilirubin (NEGATIVE) Urine Urobilinogen (0-1) mg/dL Ur Leukocyte Esterase (NEGATIVE) Urine WBC (Auto) (0-5) /HPF Urine RBC (Auto) (0-2) /HPF U Epithel Cells (Auto) (FEW) /HPF Urine Bacteria (Auto) (NEGATIVE) /HPF Urine Culture Reflexed (NO) Urine Glucose (NEGATIVE) mg/dL Influenza Type A Ag (NEGATIVE) Influenza Type B Ag (NEGATIVE) RSV (PCR) (Negative) SARS-CoV-2 (PCR) NEGATIVE (NEGATIVE) Slides for Path Review Microbiology 05/13/20 00:15 Blood Culture Gram Stain - Final Blood Accuchecks Date 05/14/20 Time 11:55 Accucheck Value: 94 - Radiology Impressions Radiology Exams & Impressions: Radiology Procedures Category Date Time Status ABDOMEN AND PELVIS W CONTRAST [CT] Stat Exams 05/14/20 02:23 Completed CHEST 1 VIEW (PORTABLE) Stat Exams 05/13/20 23:52 Completed CHEST WITH CONTRAST [CT] Stat Exams 05/14/20 02:23 Completed HIDA-GALL BLADDER [NUCMED] Routine Exams 05/15/20 08:00 Ordered Assessment/Plan (1) Bacteremia Current Visit: Yes Status: Acute Assessment & Plan: Started pt on IV zosyn for Gram Neg Rods. Code(s): R78.81 - BACTEREMIA (2) Cholecystitis Current Visit: Yes Status: Acute Assessment & Plan: Surgery consulted, thank you. Code(s): K81.9 - CHOLECYSTITIS, UNSPECIFIED (3) Elevated transaminase level Current Visit: Yes Status: Acute Assessment & Plan: recheck in a.m. Pt on IV fluids. Code(s): R74.0 - NONSPEC ELEV OF LEVELS OF TRANSAMNS & LACTIC ACID DEHYDRGNSE (4) Tachycardia Current Visit: Yes Status: Acute Assessment & Plan: HR down to upper 90s. Code(s): R00.0 - TACHYCARDIA, UNSPECIFIED
[2020-05-14] MEDS: Lantus Insulin SQ SCH (21:37)
[2020-05-14] MEDS ORDERED: INSULIN GLARGINE HUM REC ANLOG 10 UNIT SQ SCH (22:00)
[2020-05-15] MEDS: Zosyn 2.25 GM 2.25 GM in Dextrose 5%/Water IV Soln. 100ML PLUS BAG 100 ML IV SCH ×4 (03:18→21:18)
[2020-05-15] MEDS: HUMALOG SQ PRN ×2 (04:25→21:19)
[2020-05-15] MEDS: TYLENOL 325 MG PO PRN ×3 (04:28→22:23)
[2020-05-15 05:12] LABS: Absolute Neutrophil Ct (ANC) 3.33 (1.4-6.9); BASOPHIL % 0.2 % (0.0-0.4); Basophil (Absolute #) 0.01 (0-0.4); Eosinophil % 3.8 % (0.00-5.0); Eosinophil (Absolute #) 0.16 (0-0.5); Hematocrit 32.3 % (35-47); Hemoglobin 9.9 gm/dl (12.0-16.0); Lymphocyte (Absolute #) 0.35 (1.0-4.6); Lymphocytes % 8.2 % (24.0-44.0); Mean Cell Volume 95.8 fl (78-100); Mean Corpuscular Hemoglobin 29.4 pg (26-32); Mean Corpuscular Hgb Concent. 30.7 g/dl (32-36); Mean Platelet Volume 9.3 fl (7.5-11.0); Monocyte (Absolute #) 0.41 (0.0-1.3); Monocytes % 9.6 % (0.0-12.0); Neutrophil % 78.2 % (36.0-66.0); Platelet Count 151 K/mm3 (150-450); Red Blood Count 3.37 M/mm3 (4.1-5.4); Red Cell Distribution Width 16.3 % (11.5-14.0); White Blood Count 4.3 K/mm3 (4.0-10.5)
[2020-05-15 05:44] LABS: ALBUMIN 3.5 g/dL (3.5-5.0); ANION GAP 11.6 MEQ/L (5-15); BILIRUBIN,TOTAL 2.1 mg/dL (0.2-1.3); Calcium 8.7 mg/dL (8.4-10.2); Creatinine 1 1.12 mg/dL (0.52-1.04); Potassium 4.4 mmol/L (3.5-5.1); Total Protein 6.7 g/dL (6.3-8.2)
[2020-05-15] MEDS: Lactated Ringers 1,000 ML IV SCH (06:27)
[2020-05-15 08:05] LABS: Slide Review 1 YES
[2020-05-15] MEDS: Pepcid 20 MG VIAL IV SCH ×2 (09:20→21:19)
[2020-05-15] MEDS: Zestril 10 MG PO SCH (09:20)
[2020-05-15] MEDS: Imdur 30 MG PO SCH (09:20)
[2020-05-15] MEDS: Neurontin 100 MG PO SCH ×3 (09:20→21:18)
[2020-05-15] MEDS: Toprol Xl 50 MG PO SCH (09:20)
[2020-05-15] MEDS: Protonix 40MG Tablet PO SCH (09:20)
[2020-05-15] MEDS: ENOXAPARIN SODIUM SQ SCH (09:21)
[2020-05-15] MEDS: SYNTHROID 88 MCG PO SCH (09:21)
[2020-05-15] MEDS: Lidoderm Patch 5% TOP SCH (09:23)
[2020-05-15] MEDS ORDERED: LIDOCAINE TOP SCH (10:00)
[2020-05-15] MEDS ORDERED: D50W 50ML Vial IV ONE (11:37)
[2020-05-15] MEDS ORDERED: D50W 50 ml Abboject IV ONE (11:45)
--- NOTE | 2020-05-15 13:41 | XRAY ---
Indication: Right upper quadrant pain. Comparison: None Patient received 5.4 mCi technetium 99 Choletec. Immediate anterior planar imaging was performed for 60 minutes. Normal hepatic activity on the first image. Normal biliary activity within 10 minutes. Normal gallbladder activity within 20 minutes. Normal biliary to bowel activity within 30 minutes. Patient then received 1.6 g of IV CCK slowly. Patient complained of right upper quadrant pain following injection. Ejection fraction calculated at 75%, normal. Impression: Normal HIDA scan. Normal ejection fraction.
[2020-05-15] MEDS ORDERED: Sodium Chloride 0.9% 10 ML FLUSH Syringe IV PRN (16:30)
--- NOTE | 2020-05-15 19:32 | PCM.NOTE ---
Date and Time: 05/15/201926 Subjective Assessment: 85 yr old female seen and examined this am. Patient is reporting she still has some chest tightness around her upper abdomen. She reports she still has nausea without pain. Patient has had x5 cardiac bypass in the past. She reports that when she takes nitro that does improve her chest tightness. She also reports feeling SOB. She continues to have bilateral lower extremity discomfort. - Review of Systems Constitutional: Chills, No Fever Eyes: No Symptoms Ears, Nose, & Throat: No Symptoms Respiratory: Short Of Breath, No Cough Cardiac: Chest Pain Abdominal/Gastrointestinal: Nausea, No Abdominal Pain, No Vomiting, No Diarrhea, No Constipation Genitourinary Symptoms: No Symptoms Musculoskeletal: Fall, Injury Skin: No Symptoms Neurological: No Headache Objective Exam General Appearance: mild distress Neurologic Exam: alert, oriented x 3, cooperative Skin Exam: normal color, warm, dry, No rash Eye Exam: eyes nml inspection Ears, Nose, Throat Exam: moist mucous membranes Neck Exam: normal inspection Respiratory Exam: normal breath sounds, No respiratory distress, No wheezing Cardiovascular Exam: regular rate/rhythm, normal heart sounds, No murmur, No friction rub, No gallop Gastrointestinal/Abdomen Exam: soft, normal bowel sounds, distention, No tenderness Extremity Exam: normal inspection, tenderness (bilateral lower extremities) OBJECTIVE DATA Vital Signs: Vital Signs - 24 hr Temp Pulse Resp BP Pulse Ox 05/15/20 16:00 98.9 F 83 17 115/56 93 L 05/15/20 12:16 99.0 F 79 18 115/56 91 L 05/15/20 12:00 99 F 79 18 115/56 91 L 05/15/20 07:27 97.9 F 80 16 113/56 93 L 05/15/20 04:00 97.8 F 70 16 120/59 93 L 05/15/20 00:00 97.4 F 71 20 100/51 93 L 05/14/20 20:00 97.9 F 80 18 95/54 94 L Pain Assessment - Last Documented Pain Intensity 0 Pain Scale Used 0-10 Pain Scale Intake and Output: Intake & Output 05/13/20 05/14/20 05/15/20 05/16/20 11:59 11:59 11:59 11:59 Intake Total 1922 240 Output Total 800 Balance 1122 240 Weight 78.2 kg 78 kg Lab Results: Accuchecks Date 05/15/20 Date 05/15/20 Date 05/15/20 Time 16:41 Time 11:45 Time 07:35 Accucheck Value: 202 Accucheck Value: 66 Accucheck Value: 101 Accucheck Value: 240 Accucheck Value: 190 Accucheck Value: 127 Lab Results-Last 24 Hours 05/15/20 05/15/20 Range/Units 04:40 04:40 WBC 4.3 (4.0-10.5) K/mm3 RBC 3.37 L (4.1-5.4) M/mm3 Hgb 9.9 L (12.0-16.0) gm/dl Hct 32.3 L (35-47) % MCV 95.8 (78-100) fl MCH 29.4 (26-32) pg MCHC 30.7 L (32-36) g/dl RDW 16.3 H (11.5-14.0) % Plt Count 151 (150-450) K/mm3 MPV 9.3 (7.5-11.0) fl Gran % 78.2 H (36.0-66.0) % Eos # (Auto) 0.16 (0-0.5) Absolute Lymphs (auto) 0.35 L (1.0-4.6) Absolute Monos (auto) 0.41 (0.0-1.3) Lymphocytes % 8.2 L (24.0-44.0) % Monocytes % 9.6 (0.0-12.0) % Eosinophils % 3.8 (0.00-5.0) % Basophils % 0.2 (0.0-0.4) % Absolute Granulocytes 3.33 (1.4-6.9) Basophils # 0.01 (0-0.4) Sodium 134 L (137-145) mmol/L Potassium 4.4 (3.5-5.1) mmol/L Chloride 98 (98-107) mmol/L Carbon Dioxide 29 (22-30) mmol/L Anion Gap 11.6 (5-15) MEQ/L BUN 20 H (7-17) mg/dL Creatinine 1.12 H (0.52-1.04) mg/dL Estimated GFR 49.1 ML/MIN Glucose 174 H (74-106) mg/dL Calcium 8.7 (8.4-10.2) mg/dL Total Bilirubin 2.10 H (0.2-1.3) mg/dL AST 191 H (14-36) U/L ALT 320 H (0-35) U/L Alkaline Phosphatase 187 H (38-126) U/L Serum Total Protein 6.7 (6.3-8.2) g/dL Albumin 3.5 (3.5-5.0) g/dL Slides for Path Review YES Radiology Exams: Radiology Procedures Category Date Time Status ABDOMEN AND PELVIS W CONTRAST [CT] Stat Exams 05/14/20 02:23 Completed CHEST 1 VIEW (PORTABLE) Stat Exams 05/13/20 23:52 Completed CHEST WITH CONTRAST [CT] Stat Exams 05/14/20 02:23 Completed HEPATOBILIARY W/CCK [NUCMED] Routine Exams 05/15/20 08:00 Completed Assessment/Plan (1) Dysfunctional gallbladder Current Visit: Yes Status: Acute Assessment & Plan: Patient's HIDA scan showed EF of 75% and patient was symptomatic at that time. CT scan showed distended gallbladder without stones. She appears to have biliary hyperkinesia. Will see if surgery would like to see her as an outpatient for c onsultation. Patient may also need and MRCP or ERCP for further evaluation for underlying cholangitis or other pathology Code(s): K82.8 - OTHER SPECIFIED DISEASES OF GALLBLADDER (2) Bacteremia Current Visit: Yes Status: Acute Assessment & Plan: Likely related to the gallbladder dysfunction. Patient does have hardware from previous ortho repair. Will continue to monitor patient for signs of sepsis and treat accordingly. She will stay on antibiotics for time being and she will require repeat cultures. Sensitivity still pending. Code(s): R78.81 - BACTEREMIA (3) Cholecystitis Current Visit: Yes Status: Acute Code(s): K81.9 - CHOLECYSTITIS, UNSPECIFIED (4) Elevated transaminase level Current Visit: Yes Status: Acute Assessment & Plan: Have improved however patient's tbili trended up. Again likely related to gallbladder dyskinesia or liver function abnormality. Will continue to monitor and get repeat labs in am Code(s): R74.0 - NONSPEC ELEV OF LEVELS OF TRANSAMNS & LACTIC ACID DEHYDRGNSE (5) Tachycardia Current Visit: Yes Status: Acute Assessment & Plan: Could be related to bacteremia. Patient's tachycardia has improved and remained stable over the past 24 hours. Code(s): R00.0 - TACHYCARDIA, UNSPECIFIED (6) Anemia Current Visit: Yes Status: Acute Assessment & Plan: Patient's hgb has trended down possibly dilutional but hovering around 9-10. Will consider further follow up to eval type of anemia Code(s): D64.9 - ANEMIA, UNSPECIFIED
[2020-05-15] MEDS: Lantus Insulin SQ SCH (21:18)
[2020-05-15] MEDS: Sodium Chloride 0.9% 10 ML FLUSH Syringe IV SCH (21:32)
[2020-05-16] MEDS: Zosyn 2.25 GM 2.25 GM in Dextrose 5%/Water IV Soln. 100ML PLUS BAG 100 ML IV SCH ×2 (03:18→09:13)
[2020-05-16 05:00] VITALS: O2SAT 94
[2020-05-16] MEDS: TYLENOL 325 MG PO PRN (06:55)
[2020-05-16] MEDS: Sodium Chloride 0.9% 10 ML FLUSH Syringe IV SCH (06:55)
[2020-05-16 08:11] VITALS: BP 187/85; PULSE 76
[2020-05-16] MEDS: Lidoderm Patch 5% TOP SCH (09:13)
[2020-05-16] MEDS: Toprol Xl 50 MG PO SCH (09:14)
[2020-05-16] MEDS: Protonix 40MG Tablet PO SCH (09:14)
[2020-05-16] MEDS: ENOXAPARIN SODIUM SQ SCH (09:14)
[2020-05-16] MEDS: Neurontin 100 MG PO SCH (09:14)
[2020-05-16] MEDS: Pepcid 20 MG VIAL IV SCH (09:14)
[2020-05-16] MEDS: Zestril 10 MG PO SCH (09:14)
[2020-05-16] MEDS: Imdur 30 MG PO SCH (09:15)
[2020-05-16] MEDS: SYNTHROID 88 MCG PO SCH (09:15)
--- NOTE | 2020-05-16 10:02 | CONS ---
CONSULT DATE: 05/15/2020 This patient is seen for Dr. Farooq or Dr. Mancilla who were consulted over the weekend and asked that I see the patient here. HISTORY: She is seen with some cardiac issues, feeling weird, nauseated, tachycardia. She had a CT-angiography that was negative for pulmonary embolus but showed distended gallbladder, concern about obstruction. Troponins were negative. Patient's white count was 6.5 and hemoglobin 10.3. She had some elevated AST 748, ALT 570 and alkaline phosphatase 206 when she came in. She had a HIDA scan ordered that showed no evidence of any obstruction, normal ejection fraction and normal biliary activity. The patient again tolerated regular diet. She denied any abdominal pain, any nausea or vomiting. PAST MEDICAL HISTORY: Coronary artery disease, hypercholesterolemia, hypertension, type 2 diabetes, hypothyroidism, reflux, obesity. PAST SURGICAL HISTORY: Coronary artery bypass graft in the past. She had recent hip fracture by Dr. Mcdonald, Orthopedic in [place]. Pelvic fracture recently. She had three pins placed apparently. She has been at [facility] recently for a couple of weeks prior to admission. She denied any prior abdominal surgery. MEDICATIONS: She has been on aspirin, clopidogrel, gabapentin, glimepiride, Toujeo, Lispro insulin, Imdur, Synthroid, lidocaine 4%, Zestril, Glucophage, metoprolol, pantoprazole, ALLERGIES: ALBUTEROL. FAMILY HISTORY: Negative in regards to this problem. SOCIAL HISTORY: Former smoker. No alcohol abuse. LABORATORY DATA AND TESTING: CT scan without gallstones. HIDA scan showed no evidence of obstruction. I am not sure if she is a candidate to consider ERCP given her recent surgical intervention. White count 4.3, hemoglobin 9.9, PLT 151,000. Liver function tests defervescing AST 191, ALT 320, alkaline phosphatase 187. Bilirubin is around 2. REVIEW OF SYSTEMS: Fourteen systems reviewed. No chest pain or palpitations. Other systems negative or noncontributory as above and per preadmission questionnaire. PHYSICAL EXAMINATION: GENERAL: No acute distress. HEENT: Sclera nonicteric. NECK: No JVD. CHEST: Equal excursion, nonlabored breathing. CVS: Regular rate and rhythm. ABDOMEN: Soft. EXTREMITIES: No edema. No cyanosis. NEURO: Alert, moving extremities grossly symmetrically. PSYCH: Appropriate mood and affect. IMPRESSION: She had some vague distention of gallbladder. She had a completely normal HIDA scan with ejection fraction 75%. No abdominal pain, no nausea or vomiting. She is tolerating a diet. There is no need for any emergent general surgical intervention regarding her gallbladder at this time. Liver function tests whether related to her recent surgery or whether some sensitivity to postoperative pain medications or Tylenol, whether hepatitis or other etiology unclear but she is not having any pain. The liver function test seems to be a little bit lower. If they fail to continue to improve she may need opinion from candy bar attendant or other specialist. I am not sure if she has hepatitis work up done or not but there are no obvious calcified gallstones on the scan and she has a normal ejection fraction of 75%, normal biliary to bowel activity. No evidence of any significant obstruction in the biliary system to account for the elevated liver test. She agrees with the plan. She wants to go home. There is no emergent general surgery necessary at this time. If her liver function tests fail to improve over time consider opinion from candy bar attendant or liver specialist. I will sign off at this time.
--- NOTE | 2020-05-16 10:05 | PCM.DS ---
Discharge Summary Date of Admission: 05/14/20 09:43 Admitting Physician: EVANS DOUGHERTY Consults: Consults on Case 05/14/20 13:24 Consult Surgery ROUTINE Primary Care Provider: SHANNON CHILD II Allergies Allergies albuterol Allergy (Verified 05/13/20 23:36) Hospital Summary - Vitals & Intake/Output Vital Signs: Vital Signs Temperature 98.1 F 05/16/20 08:00 Pulse Rate 76 05/16/20 08:00 Respiratory Rate 24 05/16/20 08:00 Blood Pressure 187/85 05/16/20 08:00 O2 Sat by Pulse Oximetry 94 L 05/16/20 08:00 Intake & Output: Intake & Output 05/13/20 05/14/20 05/15/20 05/16/20 11:59 11:59 11:59 11:59 Intake Total 1922 1853 Output Total 800 2550 Balance 1122 -697 Weight 78.2 kg 78 kg 81.1 kg - Lab Result Diagrams: 05/15/20 04:40 05/15/20 04:40 Lab Results-Last 24 Hrs: Accuchecks Date 05/16/20 Date 05/15/20 Date 05/15/20 Time 08:08 Time 16:41 Time 11:45 Accucheck Value: 137 Accucheck Value: 178 Accucheck Value: 202 Accucheck Value: 66 Micro Results-Entire Visit: Microbiology 05/13/20 00:15 Blood Culture Gram Stain - Final Blood Blood Culture - Final Escherichia Coli 05/13/20 00:05 Blood Culture - Preliminary Blood NO GROWTH TO DATE Accuchecks Date 05/16/20 Date 05/15/20 Date 05/15/20 Time 08:08 Time 16:41 Time 11:45 Accucheck Value: 137 Accucheck Value: 178 Accucheck Value: 202 Accucheck Value: 66 - Radiology Exams Ordered Rad Exams-Entire Visit: Radiology Procedures Category Date Time Status HEPATOBILIARY W/CCK [NUCMED] Routine Exams 05/15/20 08:00 Completed Final Diagnosis/Problem List - Final Discharge Diagnosis/Problem (1) Dysfunctional gallbladder Current Visit: Yes Status: Acute Code(s): K82.8 - OTHER SPECIFIED DISEASES OF GALLBLADDER (2) Bacteremia Current Visit: Yes Status: Acute Code(s): R78.81 - BACTEREMIA (3) Cholecystitis Current Visit: Yes Status: Acute Code(s): K81.9 - CHOLECYSTITIS, UNSPECIFIED (4) Elevated transaminase level Current Visit: Yes Status: Acute Code(s): R74.0 - NONSPEC ELEV OF LEVELS OF TRANSAMNS & LACTIC ACID DEHYDRGNSE (5) Tachycardia Current Visit: Yes Status: Acute Code(s): R00.0 - TACHYCARDIA, UNSPECIFIED (6) Anemia Current Visit: Yes Status: Acute Code(s): D64.9 - ANEMIA, UNSPECIFIED - Discharge Disposition: DC TO [facility] Condition: Stable Prescriptions: New Levofloxacin 750 mg PO DAILY #14 tablet Continue Nitroglycerin 0.4 mg Tablet [Nitrostat 0.4 MG Tablet] 1 tab SL Q5MIN PRN MR X 3 PRN PRN Reason: Chest Pain Polyethylene Glycol 3350 [Miralax] 1 packet PO DAILY PRN PRN Reason: bowel care PANTOPRAZOLE 40 mg Tablet [Protonix 40MG Tablet] 40 mg PO DAILY Metoprolol Succinate 50 mg PO DAILY Metformin HCl 500 mg [Glucophage 500 MG] 500 mg PO BID Lisinopril 10 mg [Zestril 10 MG] 10 mg PO DAILY Levothyroxine Sodium 88 Mcg [Synthroid 88 Mcg] 88 mcg PO DAILY Isosorbide Mononitrate 30 mg [Imdur 30 MG] 30 mg PO DAILY Insulin Lispro 7 units SQ TID Insulin Glargine,Hum.rec.anlog [Toujluis Almanza Solostar] 25 units SQ HS Hydrocodone Bit/Acetaminophen [Hydrocodon-Acetaminophen 5-325] 1 tab PO Q6H PRN PRN Reason: pain Glimepiride 1 mg PO BID Gabapentin 200 mg PO TID Enoxaparin Sodium 40 mg SQ DAILY Clopidogrel Bisulfate 75 mg [PLAVIX 75 MG Tablet] 75 mg PO DAILY Aspirin EC 81 mg [Ecotrin 81 mg] 81 mg PO HS Acetaminophen 325 mg [Tylenol 325 mg] 2 tab PO Q4H PRN PRN Reason: Mild Pain Lidocaine/Transparent Dressing [Lidocaine 4% Kit] 1 patch TOP DAILY Glucagon [Baqsimi] 1 spray IN UD PRN PRN Reason: Hypoglycemia Additional Instructions: Eloinas Mayte Goldstein orders: -Resume MMM's rehab orders -PT/OT eval and treat -Accuchecks ACHS -resume previous diet orders -see attached medication list for medication orders -Repeat Blood Cultures in 2 days on 05/18/20 Follow up with: ROYAL SIFUENTES, [NON-STAFF PHY W/O PRIVILEGES] - 05/18/20 9:45 am OSCAR WEST MD [NON-STAFF PHY W/O PRIVILEGES] - 05/18/20 2:20 pm (with Lelo-LEAH)
== END 2020-05-16 10:23 ==
LOC: ED 23:24 → MED SURG 05-14 09:43
PROVIDERS: ADMIT Family Medicine; ATTEND Family Medicine
DX: K82.8 Other specified diseases of gallbladder (principal); R78.81 Bacteremia; K81.9 Cholecystitis, unspecified; R74.0 Nonspecific elevation of levels of transaminase and lactic acid dehydrogenase [LDH]; R00.0 Tachycardia, unspecified; D64.9 Anemia, unspecified; F41.9 Anxiety disorder, unspecified; E11.9 Type 2 diabetes mellitus without complications; I10 Essential (primary) hypertension; E03.9 Hypothyroidism, unspecified; Z79.01 Long term (current) use of anticoagulants; Z79.899 Other long term (current) drug therapy; Z95.1 Presence of aortocoronary bypass graft; E78.00 Pure hypercholesterolemia, unspecified
CPT/HCPCS: 36000; 36415; 71045; 71260; 74177; 78227; 80053; 81001; 82962; 83036; 83605; 83735; 83880; 84484; 85025; 85379; 85610; 85730; 87040; 87077; 87186; 87631; 93005; 93041; 93268; 96374; 99285; A9537; G0378; P9612; U0003; J1650; J1817; J2405; J2543; J2805; A9270-GY